=== PATIENT | female | born 1945 | race Caucasian/White ===

== ENCOUNTER 2017-10-24 10:20 | Inpatient (IN) | payer OTHER ==
[~2017-10-24] VITALS: Ht 157.5 cm; Wt 97.5 kg
--- NOTE | ~2017-10-24 | O ---
[facility] [place] [address] OPERATIVE REPORT Name: JAMI MATHUR Room #: 412-P [facility] IN M.R.#: [id number] Admission: 10/24/17 Attend Phys: Brad Brown MD Discharge: 10/27/17 Date of : 49 Report #: [id number] THIS REPORT FOR: //name// CC: Brad Lowe DATE OF SERVICE: 10/25/2017 PREOPERATIVE DIAGNOSIS: Displaced 3-part right distal radius fracture. POSTOPERATIVE DIAGNOSIS: Displaced 3-part right distal radius fracture. PROCEDURE: ORIF right 3-part distal radius fracture. SURGEON: Ney Maynard MD WOOL CARDER: Emily Anderson PA-C. ANESTHESIA: LMA. IMPLANTS: Acumed short narrow 3-hole right distal radius locking plate with a combination of cortical and locking screws. TOURNIQUET TIME: 26 minutes. ESTIMATED BLOOD LOSS: 10 mL. COMPLICATIONS: None. SPECIMENS: None. CONDITION UPON LEAVING THE OPERATING ROOM: Stable. INDICATIONS FOR PROCEDURE: The patient is a 72-year-old female who fell and sustained a right displaced intra-articular 3-part distal radius fracture. She was admitted to the hospital for definitive treatment. After discussion with her, she elected for ORIF of her right distal radius. DESCRIPTION OF PROCEDURE: Risks, benefits, alternatives, complications were discussed in detail with the patient including but not limited to risk of anesthesia, risk of damage to nerves, arteries, blood vessels, risk for infection, bleeding, risk for continued wrist pain, malunion, nonunion and need for reoperation. Informed consent was obtained from the patient. The right wrist was appropriately marked in the preoperative holding area. IV Ancef was given for preoperative antibiotics. She was brought to the operating room and placed in the supine position on operating room table. LMA anesthesia was [address] [address] OPERATIVE REPORT Name: KEVANJAMI Room #: 412-P [facility] IN .R.#: [id number] Admission: 10/24/17 Attend Phys: Brad Brown MD Discharge: 10/27/17 Date of : 49 Report #: [id number] induced without complication. Tourniquet was placed on right upper extremity. Right upper extremity was prepped and draped in normal sterile fashion. Timeout was performed properly identifying the patient and procedure as well as the instrumentation. All in the operating room were in agreement. The right upper extremity was exsanguinated. Tourniquet was inflated. Tourniquet time was 26 minutes. A standard volar approach to the wrist centered over the FCR tendon was made with a 10 blade through the skin. Dissection was taken down sharply to the FCR tendon and the sheath was incised longitudinally. The tendon was retracted radially and the floor of the sheath was incised longitudinally. Blunt dissection was taken down to the pronator and this was taken off the radial aspect of the distal radius. Ball elevator was used to clean off the distal radius and the fracture was then held manually reduced and a provisional radial styloid K-wire was placed for provisional fixation. The fluoroscopic imaging was used to verify adequate reduction of the fracture. A short 3-hole narrow Acumed distal radius locking plate was then positioned under fluoroscopic imaging. One proximal cortical screw was placed to center the plate on the bone. A provisional K-wire was placed distally to bring the plate down to the distal radius and one distal cortical screw was used to bring the plate down to the distal radius. Four additional distal radial locking screws were then placed and the proximal cortical screw was then tightened. Two additional proximal cortical locking screws were placed. After this, the K-wires were removed. Final fluoroscopic imaging was brought in to verify adequate fracture reduction and placement of hardware. The tourniquet was deflated. Hemostasis was obtained with Bovie cautery. Wound was thoroughly irrigated with normal saline. The skin was closed with 2-0 Vicryl, 3-0 nylon. Adaptic, 4 x 4, Webril, and a sugar tong splint were applied. The patient tolerated this procedure well and went to the recovery room under the care of Anesthesia postoperatively. <ELECTRONICALLY SIGNED> By: Ney Maynard MD 11/10/17 1148 1014 1117 Ney Maynard MD /nt
[~2017-10-24 10:20] MED LIST: AMOXICILLIN 50500 MG PO; APAP650 PO; ASPIRIN81 M2 PO; BENADRYL ALLERG25 MG PO; BIOTIN300 MCG PO; BLACK COHOSH200 MG PO; CARDIZEM CD240 MG PO; FISH OIL 1,0001 EAC5 PO; FOSAMAX 70 MG T70 M1 PO; GLUCOSAMIN-CHO1 EACH PO; HYDROCHLOROTHIA25 M1 PO; K-DUR 20 MEQ T20 MEQ PO; KLOR-CON 1010 MEQ PO; LOMOTIL TABLET1 EACH PO; METHOCARBAMOL500 M1 PO; MULTIVITAMINS PO; NEURONTIN 300300 M1 PO; NEURONTIN300 MG PO; OXYCODONE HCL20 M1 PO; PERCOCET 10-321 EACH PO; PHENERGAN 25 MG25 M1 PO; PRESERVISION A1 EAC2 PO; SLEEP AID25 MG PO; TOPROL XL25 MG PO; VITAMIN D31000 UNI2 PO; VITAMIN E400 UNIT PO; ZOFRAN ODT4 MG PO
[2017-10-24 10:21] VITALS: BP 145/49
[2017-10-24 11:05] LABS: ABSOLUTE NEUTROPHILS 5.7 thou/uL (1.4-8.2); BASOPHILS 0.6 % (0.0-2.0); EOSINOPHILS 0.3 % (0.0-3.0); HEMATOCRIT 39.7 % (37.0-47.0); LYMPHOCYTES 18.1 % (24.0-44.0); MCH 31.8 pg (26.0-34.0); MCHC 32.6 g/dL (28.0-37.0); MCV 97.5 fL (80.0-100.0); MONOCYTES 8.6 % (1.0-8.0); PLATELET COUNT 243 thou/uL (150-400); POLYS 72.4 % (36.0-66.0); RBC 4.07 mil/uL (4.20-5.00); RDW 14.6 % (10.5-14.5); WBC 7.9 thou/uL (4.0-11.0)
[2017-10-24 11:13] LABS: CALCIUM 9.6 mg/dL (8.5-10.1); CREATININE 0.8 mg/dL (0.6-1.0); POTASSIUM 3.7 mmol/L (3.5-5.1)
[2017-10-24 11:19] LABS: ALBUMIN 3.3 g/dL (3.4-5.0); TOTAL BILIRUBIN 0.3 mg/dL (<0.1-1.0)
[2017-10-24 11:20] LABS: APTT 25.4 Seconds (24.5-32.8)
[2017-10-24 12:24] VITALS: BP 145/49
[2017-10-24 13:22] VITALS: BP 132/75
[2017-10-24 20:35] VITALS: BP 179/59
[2017-10-25] VITALS (11 sets, daily range): BP systolic 100–179; BP diastolic 52–82
[2017-10-25 05:23] LABS: HEMATOCRIT 39.1 % (37.0-47.0); HEMOGLOBIN 12.8 gm/dL (12.0-15.0); MCH 32.4 pg (26.0-34.0); MCHC 32.7 g/dL (28.0-37.0); MCV 98.9 fL (80.0-100.0); RBC 3.95 mil/uL (4.20-5.00); RDW 14.7 % (10.5-14.5); WBC 8.7 thou/uL (4.0-11.0)
[2017-10-25 05:35] LABS: CALCIUM 9.4 mg/dL (8.5-10.1); CREATININE 0.7 mg/dL (0.6-1.0); POTASSIUM 4.6 mmol/L (3.5-5.1)
[2017-10-25] MEDS ORDERED: TYLENOL325 MG PO (07:49)
[2017-10-25] MEDS ORDERED: ARICEPT 5 MG TAB5 MG PO (07:50)
[2017-10-25] MEDS ORDERED: BIOTIN1000 MCG PO (07:51)
[2017-10-25] MEDS ORDERED: CARDIZEM CD120 MG PO (07:52)
[2017-10-25] MEDS ORDERED: VITAMIN D1000 UNI1 PO (07:52)
[2017-10-25] MEDS ORDERED: DEPAKOTE ER500 MG PO (07:54)
[2017-10-25] MEDS ORDERED: CRANBERRY 6,001 EACH PO (07:54)
[2017-10-25] MEDS ORDERED: DEPAKOTE 250MG250 M1 PO (07:55)
[2017-10-25] MEDS ORDERED: LACTULOSE10 GM/152 PO (07:57)
[2017-10-25] MEDS ORDERED: FISH OIL 1,001000 M2 PO ×2 (07:57→08:04)
[2017-10-25] MEDS ORDERED: NEURONTIN 300M300 M2 PO (07:58)
[2017-10-25] MEDS ORDERED: FLECAINIDE ACET50 M1 PO (07:58)
[2017-10-25] MEDS ORDERED: ATIVAN0.5 MG PO (07:59)
[2017-10-25] MEDS ORDERED: MELATIN3 MG PO (07:59)
[2017-10-25] MEDS ORDERED: GLUCOSAMINE CH1 EA10 PO (07:59)
[2017-10-25] MEDS ORDERED: NAMENDA 10 MG T10 MG PO (08:00)
[2017-10-25] MEDS ORDERED: SENNA8.6 MG PO (08:01)
[2017-10-26] VITALS: BP 141/59
[2017-10-26 04:00] VITALS: BP 126/60
[2017-10-26 06:06] LABS: HEMATOCRIT 34.7 % (37.0-47.0); HEMOGLOBIN 11.4 gm/dL (12.0-15.0)
[2017-10-26 09:56] VITALS: BP 143/47
[2017-10-26 16:00] VITALS: BP 165/54
[2017-10-26 20:00] VITALS: BP 158/60
[2017-10-27 04:00] VITALS: BP 124/54
[2017-10-27 08:57] VITALS: BP 139/42
[2017-10-27] MEDS ORDERED: HYDROCODON-ACE1 EAC7 PO (09:55)
[2018-02-19] MEDS ORDERED: ATIVAN0.5 MG PO (13:53)
[2018-02-19] MEDS ORDERED: ZYRTEC10 M5 PO (13:55)
[2018-02-19] MEDS ORDERED: CIPROFLOXIN HC2.5 M1 OPHTHALMIC (13:57)
[2018-02-19] MEDS ORDERED: CRANBERRY200 MG PO (13:58)
[2018-02-19] MEDS ORDERED: DIVALPROEX SOD125 M1 PO (13:58)
[2018-02-19] MEDS ORDERED: GUAIFENESIN ER600 MG PO (14:02)
[2018-02-19] MEDS ORDERED: PRED FORTE 1% EY5 M1 OPHTHALMIC (14:04)
[2018-02-19] MEDS ORDERED: VOLTAREN GEL 1100 G2 TOP (14:05)
[2018-02-19] MEDS ORDERED: TRAMADOL 50 MG50 MG PO (14:05)
== END 2017-10-27 15:46 | DRG 510 ==
LOC: ER 10:20 → 4N 11:22 → EROBS 11:22 → 4N 13:14
PROVIDERS: Emergency Medicine; Hospitalist; Orthopaedic Surgery
PROC: 2W3EX1Z Immobilization of Right Hand using Splint (ICD-10-PCS; 2017-10-24)
PROC: 0PSH04Z Reposition Right Radius with Internal Fixation Device, Open Approach (ICD-10-PCS; principal; 2017-10-25)
DX: S52.501A Unspecified fracture of the lower end of right radius, initial encounter for closed fracture (principal); E43 Unspecified severe protein-calorie malnutrition; I10 Essential (primary) hypertension; H35.30 Unspecified macular degeneration; F03.90 Unspecified dementia, unspecified severity, without behavioral disturbance, psychotic disturbance, mood disturbance, and anxiety; T50.905A Adverse effect of unspecified drugs, medicaments and biological substances, initial encounter; W18.39XA Other fall on same level, initial encounter; Z90.49 Acquired absence of other specified parts of digestive tract; Z79.899 Other long term (current) drug therapy; Z88.5 Allergy status to narcotic agent; Z87.891 Personal history of nicotine dependence; Z88.2 Allergy status to sulfonamides; Y93.89 Activity, other specified; Y92.89 Other specified places as the place of occurrence of the external cause; Y99.8 Other external cause status; Z68.39 Body mass index [BMI] 39.0-39.9, adult
CPT/HCPCS: 10091; 50101; 50386; 55430; 56527; 56528; 57091; 62110; 62900; 70005

== ENCOUNTER 2018-02-24 05:23 | Day surgery (SDC) | payer OTHER ==
[~2018-02-24] VITALS: Ht 177.8 cm; Wt 56.7 kg
--- NOTE | ~2018-02-24 | EKG ---
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 : 1945 Requested By: Ravinder Barnett Order Number: [id number] MD: Titi Martin Measurements Intervals [place] Rate: 60 P: CO: 223 QRS: -25 QRSD: 100 T: 63 QT: 422 QTc: 422 Interpretive Statements Atrial-paced rhythm Borderline left axis deviation Compared to ECG 05/25/2016 06:17:07 Atrial flutter no longer present atrial pacing is now present Electronically Signed On 02-24-2018 7:59:22 CDT by Titi Martin [email or web address] <ELECTRONICALLY SIGNED> By: Titi Martin MD, [facility] 02/24/18 0759 [phone] Titi Martin MD, [facility] /EPI
--- NOTE | ~2018-02-24 | O ---
[facility] [place] [address] OPERATIVE REPORT Name: KEVANJAMI Room #: 150-2 [facility] M.R.#: [id number] Admission: 02/24/18 Attend Phys: Jacques Richard MD Discharge: Date of : 49 Report #: [id number] THIS REPORT FOR: //name// CC: Pooja Richard DATE OF SERVICE: 02/24/2018 PREOPERATIVE DIAGNOSES: 1. Right hallux valgus. 2. Right second hammer toe deformity. POSTOPERATIVE DIAGNOSES: 1. Right hallux valgus. 2. Right second hammer toe deformity. PROCEDURES: 1. Right foot modified Tate procedure. 2. Right foot first metatarsal osteotomy. 3. Right foot second toe proximal interphalangeal joint arthrodesis. 4. Right foot second toe dorsal capsulotomy and tenotomy. SURGEON: Jacques Richard M.D. HAND SPLITTER: None. ANESTHESIA: General. ESTIMATED BLOOD LOSS: Minimal. DRAINS: No drains. TOURNIQUET TIME: 75 minutes. DESCRIPTION OF PROCEDURE: The patient was brought to the operating room, where she was placed under general anesthesia. Once under adequate general anesthesia, her right lower extremity was prepped and draped in a sterile manner. The extremity was elevated, exsanguinated and tourniquet placed to 300 mmHg. A dorsal incision at the first web space was made. This was dissected down through the soft tissue to the inner sesamoid ligament, which was then incised and the abductor tendon was exposed on the sesamoid. This was released with tenotomy scissors. A [place] blade was then utilized to fenestrate the capsule and release the plantar plate from the base of proximal phalanx of the great toe. Once complete, the wound was irrigated copiously and the Tate procedure was complete. [facility] [address] [email or web address] [address] OPERATIVE REPORT Name: JAMI MATHUR Room #: 150-2 [facility]#: [id number] Admission: 02/24/18 Attend Phys: Jacques Richard MD Discharge: Date of : 49 Report #: [id number] We then proceeded with the second toe to perform a dorsal capsulotomy and tenotomy at the metatarsophalangeal joint, dissecting with tenotomy scissors the extensor tendons and releasing them with the tenotomy scissors. The dorsal capsule was released with a [place] blade. A dorsal incision over the proximal interphalangeal joint was then made and exposure was made of the proximal phalangeal head with a [place] blade, retracting the extensor tendons. A sagittal saw was used to resect the head of the proximal phalanx. The base of the middle phalanx was denuded of cartilage with a rongeur. Subsequent to this, the drill and broaches for the Smart Toe were utilized. Smart Toe implant was attempted to be placed; however, it did not provide adequate fixation. Therefore, a 6.2 K-wire was placed first antegrade and then retrograde out the toe and into the base of the proximal phalanx and across the metatarsophalangeal joint for fixation. Excellent fixation was achieved in this manner. This wound was then irrigated copiously. We then proceeded medially and a medial incision over the proximal phalanx extending down the first metatarsal was then achieved and exposure of the medial capsule was then achieved. This was then incised in line with the incision. Exposure was made of the head of the first metatarsal. The medial eminence was resected with a sagittal saw and utilizing fluoroscopy for guidance, a guidewire was placed for localization of the osteotomy site at the first metatarsal base. This was then achieved with a sagittal saw fixation then at the osteotomy site was then achieved with a Synthes opening wedge plate. A 3-mm wedge was utilized as verified with the calipers. The multiple locking screws were placed into the plate both proximal and distal to the osteotomy site. Excellent fixation was achieved in this manner. The wound was irrigated copiously. The capsular layer was plicated with 2-0 Ethibond suture. Excellent repair was achieved in this manner. Demineralized bone matrix allograft was placed into the osteotomy site. The wound was irrigated once again copiously and all the wounds were closed. The medial wound was closed with 2-0 Vicryl in subcutaneous tissues and 3-0 nylon for the skin. The dorsal wounds were closed with 4-0 Vicryl in subcutaneous tissues and 4-0 nylon for the skin. The wounds were dressed with Xeroform, 4 x 4s and a sterile soft compressive dressing was placed. Tourniquet was let down at 75 minutes. Toes were pink and warm with good capillary refill. There were no complications from the procedure. The patient tolerated the procedure well and went to the recovery room without incident. By: [id number] [id number] Jacques Richard MD /jose angel
[~2018-02-24 05:23] MED LIST changes: +ARICEPT 5 MG TAB5 MG PO; +ATIVAN0.5 MG PO; +BIOTIN1000 MCG PO; +CARDIZEM CD120 MG PO; +CIPROFLOXIN HC2.5 M1 OPHTHALMIC; +CRANBERRY 6,001 EACH PO; +CRANBERRY200 MG PO; +DEPAKOTE 250MG250 M1 PO; +DEPAKOTE ER500 MG PO; +DIVALPROEX SOD125 M1 PO; +FISH OIL 1,001000 M2 PO; +FLECAINIDE ACET50 M1 PO; +GLUCOSAMINE CH1 EA10 PO; +GUAIFENESIN ER600 MG PO; +HYDROCODON-ACE1 EAC7 PO; +LACTULOSE10 GM/152 PO; +MELATIN3 MG PO; +NAMENDA 10 MG T10 MG PO; +NEURONTIN 300M300 M2 PO; +PRED FORTE 1% EY5 M1 OPHTHALMIC; +SENNA8.6 MG PO; +TRAMADOL 50 MG50 MG PO; +TYLENOL325 MG PO; +VITAMIN D1000 UNI1 PO; +VOLTAREN GEL 1100 G2 TOP; +ZYRTEC10 M5 PO
[2018-02-24 07:00] VITALS: BP 140/75
[2018-02-24] MEDS ORDERED: PERCOCET 7.5-31 EACH PO (10:04)
[2018-02-24 10:54] VITALS: BP 140/75
== END 2018-02-24 11:30 ==
LOC: OR 05:23 → TBA 05:23 → OR 11:30
DX: M20.41 Other hammer toe(s) (acquired), right foot (principal); M20.11 Hallux valgus (acquired), right foot; I10 Essential (primary) hypertension; I48.91 Unspecified atrial fibrillation; Z88.2 Allergy status to sulfonamides; Z88.6 Allergy status to analgesic agent; Z98.890 Other specified postprocedural states; Z87.891 Personal history of nicotine dependence; Z98.41 Cataract extraction status, right eye; Z87.440 Personal history of urinary (tract) infections; Z90.49 Acquired absence of other specified parts of digestive tract; Z79.899 Other long term (current) drug therapy; Z79.01 Long term (current) use of anticoagulants
CPT/HCPCS: 50010; 50101; 50386; 50951; 51008; 51412; 53341; 56524; 56526; 56527; 57091; 62110; 62900; 70005

== ENCOUNTER 2018-02-25 04:06 | Emergency (ER) | payer OTHER ==
[~2018-02-25] VITALS: Ht 160 cm; Wt 56.7 kg
[~2018-02-25 04:06] MED LIST changes: +PERCOCET 7.5-31 EACH PO
== END 2018-02-25 07:05 ==
LOC: ER 04:06
DX: G89.18 Other acute postprocedural pain (principal); I10 Essential (primary) hypertension; I48.91 Unspecified atrial fibrillation; Z90.49 Acquired absence of other specified parts of digestive tract; Z98.890 Other specified postprocedural states; Z87.891 Personal history of nicotine dependence; Z88.1 Allergy status to other antibiotic agents; Z88.5 Allergy status to narcotic agent

== ENCOUNTER 2019-02-23 05:28 | Inpatient (IN) | payer OTHER ==
[2019-02-09 11:18] LABS: HEMATOCRIT 43.5 % (37.0-47.0); HEMOGLOBIN 14.6 gm/dL (12.0-15.0); MCH 33.6 pg (26.0-34.0); MCHC 33.6 g/dL (28.0-37.0); RBC 4.35 mil/uL (4.20-5.00); RDW 13.8 % (10.5-14.5); WBC 6.5 thou/uL (4.0-11.0)
[2019-02-09 11:19] LABS: URINE BILIRUBIN NEGATIVE (Negative); URINE BLOOD NEGATIVE (Negative); URINE CLARITY CLEAR; URINE COLOR YELLOW; URINE GLUCOSE-RANDOM* NEGATIVE (Negative); URINE KETONES NEGATIVE (Negative); URINE LEUKOCYTES-REFLEX NEGATIVE (Negative); URINE NITRITE-REFLEX NEGATIVE (Negative); URINE PROTEIN (DIPSTICK) NEGATIVE (Negative); URINE SPECIFIC GRAVITY >= 1.030 (1.005-1.035); URINE UROBILINOGEN 0.2 E.U./dl (0.2-1.0)
[2019-02-09 11:34] LABS: ALBUMIN 3.4 g/dL (3.4-5.0); CALCIUM 9.3 mg/dL (8.5-10.1); POTASSIUM 4.2 mmol/L (3.5-5.1)
[2019-02-09 11:35] LABS: PROTIME 10.2 Seconds (9.3-11.4)
[2019-02-23] VITALS (7 sets, daily range): BP systolic 117–172; BP diastolic 49–100
[~2019-02-23] VITALS: Ht 160 cm; Wt 56.7 kg
[~2019-02-23 05:28] MED LIST changes: +ADVAIR HFA 230M12 GM INH; +AZELASTINE137 MCG/0. NASAL; +BIOFREEZE118 ML TOP; +DEPAKOTE125 MG PO; +FLONASE 0.05%50 MCG NASAL; +GERI-LANTA LIQ355 ML PO; +IPRAT-ALBUT 0.5-3 ML INH; +LORAZEPAM 0.50.5 MG PO; +MUCINEX600 MG PO; +OXYBUTYNIN 5 MG5 M2 PO; +ROBITUSSIN100 MG/53 PO; +TUMS PO; +VISINE TIRED EY15 ML OPHTHALMIC
[2019-02-24 06:13] LABS: HEMATOCRIT 37.2 % (37.0-47.0); HEMOGLOBIN 12.4 gm/dL (12.0-15.0); MCH 33.7 pg (26.0-34.0); MCHC 33.4 g/dL (28.0-37.0); MCV 101.1 fL (80.0-100.0); RBC 3.68 mil/uL (4.20-5.00); RDW 13.5 % (10.5-14.5); WBC 8.9 thou/uL (4.0-11.0)
[2019-02-24 07:45] VITALS: BP 134/47
[2019-02-24 10:50] VITALS: BP 134/47
--- NOTE | 2019-02-24 14:11 | NUR ---
DISCHARGE PLANNING. PATIENT ADMITTED FROM [facility], PLAN IS FOR PATIENT TO RETURN TO [facility] ONCE MEDICALLY READY. CLINICAL INFORMATION FAXED TO [facility] [place]. UNIT SW AWARE. FOLLOWING TO ASSIST WITH DISCHARGE NEEDS.
--- NOTE | 2019-02-24 14:23 | NUR ---
PT ADMITTED RELATED TO RT TOTAL KNEE REPLACEMENT. CM REVIEWED CHART AND SPOKE WITH CARE TEAM. CM MET WITH PT AT BEDSIDE THIS DAY. PT IS A&O X4. CM ROLE INTRODUCED. PT INDICATED THAT SHE LIVES AT [facility] AND THAT SHE HAS LIVED THERE FOR THE LAST 2 YEARS. PT INDICATED SHE HAD USED A WHEELCHAIR TO ASSIST WITH MOBILITY. PT INDICATED SHE PLANS TO RETURN TO [facility] ONCE MEDICALLY STABLE. PT INDICATED HER BOTHER WILL BE ON THE ROAD TO [facility] SO SHE SAID WE COULD CALL THIAGO GUO AT TO LET HIM KNOW WHEN PT DISCHARGES. CM TO FOLLOW INDICATED WITH DC PLANNING.
[2019-02-24 14:44] VITALS: BP 106/36
--- NOTE | 2019-02-24 20:16 | NUR ---
ASSUMED CARE 0700. ALERT X3 WITH FORGETFULNESS. PAIN MANAGED WITH MEDICATIONS. WTE BEARING TOLERATED TO RIGHT KNEE, PICCO DRESSING C/D/I. CALLS FOR ASSISTANCE. FALL PRECAUTIONS IN PLACE.
[2019-02-25 05:19] LABS: HEMATOCRIT 31.2 % (37.0-47.0); MCH 33.9 pg (26.0-34.0); MCHC 33.3 g/dL (28.0-37.0); MCV 101.8 fL (80.0-100.0); RBC 3.07 mil/uL (4.20-5.00); RDW 13.9 % (10.5-14.5); WBC 12.1 thou/uL (4.0-11.0)
[2019-02-25 05:38] LABS: HEMOGLOBIN 10.4 gm/dL (12.0-15.0)
--- NOTE | 2019-02-25 06:47 | NUR ---
progress pt a/o x4 up with sba gb and walker. taking hydrocodone for pain with effect. iv infiltrated so was dc'd pt expects to dc to a facility today so not restarted. voiding qs, incision to left knee c/d/i continue to monitor.
[2019-02-25 07:35] VITALS: BP 129/47
--- NOTE | 2019-02-25 14:24 | NUR ---
Received awake on bed. Due medications given as prescribed- able to swallow tablets w/o difficulty. Pt complained of pain, due PRN pain meds given as prescribed. On room air. With ANTONIO dressing- C/D/I, no signs and symptoms of infection. Pt up with 1, able to use walker with gait belt. Pt seen by PT today. Vital signs stable. Pt seen by Dr Maynard this AM- may go home once CM has coordinated with facility the pt will be going back to- CM informed. Pt assisted in ADLs.
[2019-02-25 14:35] VITALS: BP 103/36
--- NOTE | 2019-02-25 17:00 | NUR ---
DC ORDERS WERE ENTERED. [facility] WAS CONTACTED AND THEY INDICATED THAT IF PT NEEDED REHAB SERVICES THAT THEY COULDN'T TAKE PT [facility] BECAUSE THEY DON'T TAKE HER INSURANCE. THEY INDICATED SHE WOULD NEED TO GO TO AN IN NETWORK FACILITY. CM WENT AND NOTIFIED PT AND SHE WAS VERY UPSET. INDICATED THAT SHE HAD GONE THERE AND PAYED A COPAY FOR THERAPY IN THE PAST. CM SPOKE WITH MELISA AT [facility] AGAIN AND SHE INICATED THAT HAD SPOKEN WITH PT'S BROTHER HARVEY WHO INDICATED THAT HE WASNTED TO TO GO TO [facility] OR [facility]. CM SENT REFERRALS FOR REVIEW. CM TO FOLLOW INDICATED WITH DC PLANNING.
[2019-02-25 19:37] VITALS: BP 132/45
[2019-02-26 04:44] VITALS: BP 126/42
[2019-02-26 05:53] LABS: HEMATOCRIT 27.9 % (37.0-47.0); HEMOGLOBIN 9.5 gm/dL (12.0-15.0); MCH 34.9 pg (26.0-34.0); MCHC 34.1 g/dL (28.0-37.0); MCV 102.6 fL (80.0-100.0); RBC 2.72 mil/uL (4.20-5.00); RDW 13.8 % (10.5-14.5); WBC 8.5 thou/uL (4.0-11.0)
[2019-02-26 08:00] VITALS: BP 147/50
--- NOTE | 2019-02-26 08:16 | NUR ---
progress pt tearful this shift sad she is not going back to worried about dying room mate. right knee hurts more today than yesterday and she is worried she hurt it doing therapy or tolieting ice applied reassured pt that increased pain on day 3 was normal d/t therapies and swelling advised to ice as much as possible and to rest this evening to allow for swelling to dissipate. pt settled down morphine and hydrocodone given for pain pt slept on and off this shift continue poc
[2019-02-26 15:00] VITALS: BP 123/42
--- NOTE | 2019-02-26 19:10 | NUR ---
PT A&OX3, VSS, PAIN IN RIGHT NEW MANAGED WITH NORCO AND MORPHINE.
[2019-02-26 20:00] VITALS: BP 136/50
--- NOTE | 2019-02-27 06:06 | NUR ---
PROGRESS PT CALMER THIS SHIFT NOT SO UPSET ABOUT DELAY IN DISCHARGE. SEEMS TIRED REQUESTED PAIN MEDS AND SLEPT MOST OF SHIFT UP TO [facility] A FEW TIMES WITH WALKER GAIT BELT AND 1 ASSIST. SWELLING TO RIGHT KNEE HAS SLIGHTLY DIMINISHED TO HAVE US TODAY TO R/O DVT. GOOD PEDAL PULSE, SENSATION INTACT, INCISION TO RIGHT KNEE COVERED WITH A ANTONIO DRSG THAT REMAINS C/D/I, VSS TAKING MORPHINE AND HYDROCODONE FOR PAIN STATES PAIN HAS INCREASED IN LAST 2 DAYS AND SHE IS AFRAID SHE HURT IT. BUT SHE DOESN'T RECALL ANY INJURY. USING WALKER AND GB, PLANS TO DC TO REHAB FACILITY.
[2019-02-27 08:39] VITALS: BP 137/49
[2019-02-27 14:25] VITALS: BP 120/41
[2019-02-27 19:19] VITALS: BP 137/50
--- NOTE | 2019-02-27 20:36 | NUR ---
DYSPHORIC MOOD THROUGHOUT MOST OF AM-REPORTING RIGHT KNEE PAIN RATED A 10 NORCO 5/325 GIVEN PO PRM AT 1000 AND REPEATED AT 1500- VERBALIZES POOR RELIEF AND REQUESTIIING MORPHINE MORPHINE SULFATE ADMINSTERD IV PUSH AT APPROX 1715 WITH REPORT PILD PAIN RELEF-{RATING FROPPED FROM 10 TO 9. APPETITE GOOD-USING ROLLER WALKER AND SBA X1 TO USE COMMODE-VOIDING MOD AMOUNT CLEAR YELLOW URIN
[2019-02-28 05:56] LABS: HEMATOCRIT 29.7 % (37.0-47.0); MCH 34.4 pg (26.0-34.0); MCHC 33.5 g/dL (28.0-37.0); MCV 102.4 fL (80.0-100.0); RBC 2.9 mil/uL (4.20-5.00); RDW 13.8 % (10.5-14.5)
--- NOTE | 2019-02-28 07:37 | O ---
[facility] [place] [address] OPERATIVE REPORT Name: KEVANJAMI Room #: 463-P ADM IN M.R.#: [id number] Admission: 02/23/19 ������������������ Attend Phys: Ney Maynard MD Discharge: ������������������ Date of : 49 Report #: [id number] THIS REPORT FOR: //name// CC: Pooja Maynard DATE OF SERVICE: 02/23/2019 PREOPERATIVE DIAGNOSIS: Right knee osteoarthritis. POSTOPERATIVE DIAGNOSIS: Right knee osteoarthritis. PROCEDURE: Right total knee arthroplasty using Navio robotic assistance. SURGEON: Ney Maynard MD CAN SORTER: Joseline Liao PA-C ANESTHESIA: LMA with an adductor canal block. IMPLANTS: Stubbs and Nephew size 4 narrow Legion cobalt chrome posterior stabilized femur, a size 2 tibia, a size 9 highly constrained polyethylene and a size 29 patella. TOURNIQUET TIME: 50 minutes. ESTIMATED BLOOD LOSS: 25 mL. INDICATION FOR ASSISTANCE: Throughout the case, extensive retraction and manipulation of the knee was required. This was afforded to me by my library clerical assistant. CONDITION UPON LEAVING THE OPERATING ROOM: Stable. INDICATIONS FOR PROCEDURE: The patient is a 74-year-old female with right knee osteoarthritis. She had failed conservative measures for this and after discussion with her, she elected for right total knee arthroplasty. DESCRIPTION OF PROCEDURE: Risks, benefits, alternatives, and complications were discussed in detail with the patient including but not limited to risk of anesthesia, risk of damage to nerves, arteries and blood vessels, risk for infection and bleeding, risk for continued knee pain, and need for reoperation. Informed consent was obtained from the patient. Right knee was appropriately marked in the preoperative holding area. IV Ancef was given for preoperative antibiotics. Adductor canal block was placed by Anesthesia. She was brought to the operating room and placed in the supine position on the operating room table. LMA anesthesia was induced without complication. Tourniquet was placed [address] [address] OPERATIVE REPORT Name: JAMI MATHUR Room #: 463-P [facility] IN M.R.#: [id number] Admission: 02/23/19 ������������������ Attend Phys: Ney Maynard MD Discharge: ������������������ Date of : 49 Report #: [id number] on the right thigh. Right lower extremity was prepped and draped in normal sterile fashion. Timeout was performed properly identifying the patient and procedure as well as the instrumentation and implants. All in the operating room were in agreement. Right lower extremity was exsanguinated, tourniquet was inflated. Tourniquet time was 50 minutes. Standard midline approach to the knee was made with a 10 blade through the skin. Dissection was taken down sharply to the fascia and deep flaps were developed medially and laterally. A fresh 10 blade was used to make a medial parapatellar arthrotomy and the knee was inspected. There was severe medial compartment osteoarthritis with mild patellofemoral and lateral compartment osteoarthritis. It was decided to proceed with total knee arthroplasty. ACL and PCL were removed sharply. Reference pins were placed in the femur and the tibia and the knee was digitally mapped using the Ge.tt robotic system. We sized a size 4 femur and a size 2 tibia with an 11 polyethylene spacer. After acceptance of the intraoperative plan, the distal femoral cut was made with a Navio bur. The 4-in-1 cutting block was placed. Anterior, posterior and chamfer cuts were made. Attention was then turned to the tibia. The remainder of the menisci was removed with Bovie cautery. Tibial resection guide was pinned in place using the Ge.tt system for placement of the guide. Tibial resection was made. After this, flexion and extension gaps were checked and found to have good balance in flexion and extension medially; however, laterally, there was some laxity and it was decided not to ana paula this and that we could use a highly constrained polyethylene to make up for this. The tibia was sized, found to be a size 2. A size 2 tibial trial was placed, pinned and punched. A size 4 femoral trial was placed and the box cut was made. This was then trialed with a size 9 highly constrained polyethylene. Knee was taken through range of motion, found to have a millimeter of laxity medially and laterally throughout range of motion both digitally as well as manually. After this, 9 mm was taken off the posterior surface of the patella and a size 29 patellar trial button was placed. Knee was taken through range of motion, found to have good patellar tracking. Trial components were removed. Bony ends were thoroughly irrigated with normal saline. A final size 2 tibia, a size 4 Legion cobalt chrome narrow posterior stabilized femur and a size 29 patella were cemented in place using standard cementation techniques. While the cement cured, a periarticular injection consisting of morphine, ropivacaine, epinephrine and Toradol was placed around the knee joint capsule. After the cement cured, tourniquet was deflated. Hemostasis was obtained with Bovie cautery. A final size 9 highly constrained polyethylene was placed. A gram of vancomycin was placed was closed with 2-0 Vicryl and 3-0 Monocryl. Dermabond and a ANTONIO dressing was applied. The patient tolerated the procedure well and went to the recovery room under care of Anesthesia postoperatively. ��������������������������������������������� <ELECTRONICALLY SIGNED> ���������������������������������������� By: Ney Maynard MD ��������������������������������������������� 02/28/19 0737 1726 1751 Ney Maynard MD /nt
[2019-02-28 08:00] VITALS: BP 132/46
--- NOTE | 2019-02-28 09:08 | NUR ---
PROGRESS PT PROGRESSING WITH PHYSICAL ACTIVITY BUT PAIN CONTROL IS STILL A CHALLENGE SHE IS GOING LONGER PERIODS BETWEEN MEDS BUT STILL RATING IT A 8 TO 10. PEDAL PULSE STRONG GOOD CAP REFILL, SENSATION INTACT AND ABLE TO PEDAL AND DORSIFLEX WITHOUT DIFFICULTY. UP WITH SBA AND WALKER TO [facility]. PT UPSET SHE CANNOT GO BACK TO [facility] HER D[facility] ROOM MATE THERE. I SUGGESTED SHE CALL AND CHECK ON HER AND SHE AGREED IT WOULD BE A GOOD IDEA. PLANS TO TRANSFER TO REHAB SOON INSURANCE IS APPROVED.
--- NOTE | 2019-02-28 11:16 | NUR ---
dp sent facesheet to [facility] and [facility] asking if they take patient's insurance. DP will follow up.
--- NOTE | 2019-02-28 14:39 | NUR ---
DMITRY reviewed chart and spoke with nursing and attending physician. Pt is progressing towards goals for discharge. Referral sent to [facility] on Thursday. DMITRY met with pt and her brother, Gary, at bedside to further discuss discharge plan. Pt states that she has changed her mind and would like referrals to be sent to [facility] and [facility]. vacation planner faxed face sheets to both facilities to ensure they accept pt's insurance. DMITRY received call back from Lisa at [facility], who states they are able to accept pt's insurance. DMITRY spoke with Anne at the [facility], who states they will need to verify pt's insurance. DMITRY spoke with pt's brother, Gary, who states that [facility] would be the first choice due to location. Pt agreeable with either facility. vacation planner to fax referral [facility]. DMITRY is following to assist as needed with discharge planning.
[2019-02-28 15:00] VITALS: BP 121/41
[2019-03-01 05:42] VITALS: BP 138/51
--- NOTE | 2019-03-01 07:28 | NUR ---
Pt. rested quietly at intervals during the night when checked on during frequent rounds. She has been up to the bedside comode with assistance of one. Pt. c/o right knee pain and was given po pain meds (see emar) with some relief noted. Bed alarm is on.
[2019-03-01 08:16] VITALS: BP 140/54
[2019-03-01 14:44] VITALS: BP 120/42
--- NOTE | 2019-03-01 17:20 | NUR ---
[facility] TRI[facility] TO SEE[facility] AUTH FROM PT'S [facility] BUT THEY WERE INFORMED THAT THEY WERE OUT OF NETWORK WITH PT'S PARTICULAR POLICY. SHE INDICATED THAT [facility] [place] ARE IN NETWORK. CM NOTIFIED PT AND HER BROTHER HARVEY AND PT REQUESTED THAT REFERRAL BE SENT TO [facility]. CM FOLLOWING REGARDING DC PLANNING.
--- NOTE | 2019-03-01 20:01 | NUR ---
Received awake on bed. Due medications given as prescribed, able to swallow tablets w/o difficulty. A+O. On room air. With SL at R FA- intact, flushing well. Pt complained of pain, due PRN pain meds given as prescribed. With ANTONIO dressing- C/D/I. Pt able to be up with 1 and use bedside commode. Still a/w CM input re: discharge destination and insurance coverage. Vital signs stable. Pt able to tolerate meals and finish 80-100% of it. Pt had PT session today- tolerated well. Ortho doctor came to see patient today and asked for update re: discharge to SNF, informed her that still a/w insurance approval; asked her how long ANTONIO dressing could be in place, usually 7 days, aware that dressing is C/D/I and will see pt tomorrow. Pt complained that she's having a hard time opening her bowels, due laxatives given, if still unable to open bowels this after may have PRN laxative at [facility]- night staff informed. Pt able to walk around the hallway with PT this afternoon with walker, gait belt and stand by assist.
--- NOTE | 2019-03-02 05:17 | NUR ---
Patient alert and oriented x4. Patient agitated at times. Education provided regarding pain management and pain medication availability. Patient provided PO Hydrocodone. Patient states that medication was not effective at one hour follow up. Patient then requested for IV Morphine. Patient provided IV morphine. Patient reports that pain level decreased and was tolerable but she was still in pain. Patient has been up to [facility] approximately every 45 minutes. Patient tearful and apologetic for needing to use the bathroom so much. Patient is now fixated on the idea that something could be wrong with her due to increased frequency in urination. Patient has been provided 1:1 comfort multiple times through the night to provide education on medication use and stress management. Patient has ANTONIO dressing to right hip. Clean, dry and intact. Patient has saline lock to right forearm. Patient provided Colace this shift but declines to take prescribed Senna. Education provided. Continues to decline. Took HS medications whole without difficulty. Patient has not been able to sleep much this shift but has been resting quietly in bed watching TV.
[2019-03-02 08:18] VITALS: BP 150/34
--- NOTE | 2019-03-02 13:52 | NUR ---
Nutrition: Pt admitted S/P right total knee replacement and seen due to LOS. Eating 75-100% of meals on regular diet. Able to order meals. Stable weights. Awaiting SNF transfer. Low nutrition risk.
[2019-03-02 14:47] VITALS: BP 126/46
--- NOTE | 2019-03-02 16:13 | NUR ---
CM HEARD BACK FORM [facility] AND THEY INDICATED THEIR CONTRACT WITH [facility] ENDED IN JULY 2015. CM NOTIFIED PT AND BROTHER HARVEY. CM INDICATED THAT ORTHO INDICATED THAT PT IS MEDICALLY STABLE TO DISCHARGE AND THAT PT COULD RETURN TO [facility] WITH THERAPIES TO COMPLETE ON HER OWN. PT AND BROTHER WERE NO AGREEABLE WITH THIS OPTION. THEY ASKED THAT REFERRAL BE SENT TO [facility]. REFERRAL SENT TO [facility]. CM ALERTED LIAISON AND ADMISSION COORDINATOR. CM FOLLOWING INDICATED WITH DC PLANNING.
--- NOTE | 2019-03-02 19:51 | NUR ---
ASSUMED CARE OF PATIENT AT 0715, PATIENT ALERT AND ORIENTED X 4. PATOENT UP WITH ASSIST X 1 WITH GAIT BELT AND WALKER. PATIENT HAS RIGHT TOTAL KNEE REPLACEMENT X 1 WEEK. C/O PAIN WITH RIGHT KNEE, RECEIVED HYDROCODONE X 2 TABLETS THIS SHIFT, MORPHINE 2 MG IV GIVEN WITH PARTIAL RELIEF, PATIENT HAS RIGHT FOREARM IV IN PLACE. PATIENT STILL WAITING ON FACILITY PLACEMENT. WILL CONTINUE TO MONITOR.
--- NOTE | 2019-03-03 04:45 | NUR ---
Pt. rested quietly at intervals during the night when checked on during frequent rounds. She has been given pain meds (see emar) for c/o pain to her right knee with some relief noted. Assisted up to the bedside comode with assist of one. Stanislaw dressing dry and intact to right knee. Bed alarm is on.
[2019-03-03 05:06] VITALS: BP 136/49
[2019-03-03 07:42] VITALS: BP 138/52
[2019-03-03 09:48] VITALS: BP 138/52
--- NOTE | 2019-03-03 12:45 | NUR ---
PATIENT IS ALERT AND ORIENTED X 4, [facility] TOOK MEDICATION WHOLE WITHOUT DIFFICULTY. LCTA, RESP EVEN AND UNLABORED, NO SOA NOTED. BS+X4, ABD SOFT NON-TENDER TO TOUCH. PATIENT C/O PAIN, PRN TYLENOL GIVEN, FOR RIGHT KNEE PAIN WITH PARTIAL EFFECT. ANTONIO DRESSING TO RIGHT KNEE IN PLACE, DRY AND INTACT. PATIENT DISCHARGED TODAY TO [facility]. REPORT CALLED TO NURSE (DILLON) PATIENT TO BE PICKED-UP BY 1330 HOURS. AWAITING PICK-UP.
== END 2019-03-03 15:00 | DRG 470 ==
LOC: OR 05:28 → TBA 05:29 → PRE 06:19 → EDSTATUS 09:10 → OR 09:12 → PRE 10:17 → OR 12:14 → PRE 14:11 → 4W 19:00 → OR 19:01 → 4W 19:01
PROVIDERS: Hospitalist; ADMIT Orthopaedic Surgery
PROC: 0SRC0J9 Replacement of Right Knee Joint with Synthetic Substitute, Cemented, Open Approach (ICD-10-PCS; principal; 2019-02-23)
PROC: 8E0Y0CZ Robotic Assisted Procedure of Lower Extremity, Open Approach (ICD-10-PCS; principal; 2019-02-23)
DX: M17.11 Unilateral primary osteoarthritis, right knee (principal); D62 Acute posthemorrhagic anemia; K59.00 Constipation, unspecified; G62.9 Polyneuropathy, unspecified; Z88.6 Allergy status to analgesic agent; Z79.899 Other long term (current) drug therapy
CPT/HCPCS: 10040; 10047; 50010; 50101; 50415; 50954; 51130; 51225; 53000; 53078; 53364; 54118; 56527; 56528; 57095; 57103; 57110; 57127; 57179; 62110; 62900; 64042; 70005

== ENCOUNTER → 2019-03-10 | Outpatient (CLI) | payer OTHER ==
--- NOTE | 2019-03-10 14:54 | 2DMMODE ---
[facility] [address] [place] [address] 2 D/M-MODE ECHOCARDIOGRAM Name: JAMI MATHUR Room #: REG Jamal#: [id number] Admission: 03/10/19 Attend Phys: Fredy Weeks Discharge: Date of : 49 Date of Service: 03/10/19 1454 Report #: [id number] THIS REPORT FOR: //name// APPROVED REPORT Study performed: 03/10/2019 14:11:13 EXAM: Comprehensive 2D, Doppler, and color-flow Echocardiogram Patient Location: Echo lab Status: routine BSA: 1.57 HR: 67 bpm BP: 152/68 mmHg Rhythm: NSR Other Information Study Quality: Adequate Technically limited study due to inability to position patient due to recent knee replacement. Indications Pacemaker Hypertension/HDD 2D Dimensions RVDd: 34.51 mm IVSd: 11.98 (7-11mm) LVOT Diam: 17.67 (18-24mm) LVDd: 39.26 mm PWd: 13.15 (7-11mm) Ascending Ao: 25.30 (22-36mm) LVDs: 28.51 (25-40mm) Aortic Root: 25.22 mm IVC: 7.00 mm Volumes Left Atrial Volume (Systole) Single Plane 4CH: 53.21 mL Single Plane 2CH: 55.90 mL LA ESV Index: 37.00 mL/m2 Aortic Valve AoV Peak Valentino.: 1.78 m/s AO Peak Gr.: 12.64 mmHg LVOT Max P.27 mmHg LVOT Max V: 1.15 m/s BLADIMIR Vmax: 1.58 cm2 [facility] [address] [place] [address] 2 D/M-MODE ECHOCARDIOGRAM Name: JAMI MATHUR Room #: REG Jamal#: [id number] Admission: 03/10/19 Attend Phys: Fredy Weeks Discharge: Date of : 49 Date of Service: 03/10/19 1454 Report #: [id number] Mitral Valve E/A Ratio: 2.1 MV Decel. Time: 150.23 ms MV E Max Valentino.: 1.13 m/s MV A Valentino.: 0.53 m/s MV PHT: 43.57 ms IVRT: 83.04 ms Pulmonary Valve PV Peak Valentino.: 1.18 m/s PV Peak Gr.: 5.52 mmHg Pulmonary Vein P Vein S: 0.68 m/s P Vein A: 0.18 m/s P Vein D: 0.66 m/s P Vein A Dur.: 138.4 msec P Vein S/D Ratio: 1.03 Tricuspid Valve TR Peak Valentino.: 2.84 m/s RAP Estimate: 5.00 mmHg TR Peak Gr.: 32.23 mmHg PA Pressure: 37.00 mmHg Left Ventricle The left ventricle is normal size. Borderline concentric left ventricular hypertrophy. The left ventricular systolic function is normal. The left ventricular ejection fraction is within the normal range. LVEF is 55-60%. Right Ventricle The right ventricle is normal size. The right ventricular systolic function is normal. Atria Left atrium is mildly dilated. The right atrium size is normal. Aortic Valve The aortic valve is normal in structure. No aortic regurgitation is present. There is no aortic valvular stenosis. Mitral Valve The mitral valve is normal in structure. Trace mitral regurgitation. No evidence of mitral valve stenosis. Tricuspid Valve The tricuspid valve is normal in structure. Trace tricuspid regurgitation. PAP is estimated at 37 mmHg. [facility] [address] [place] [address] 2 D/M-MODE ECHOCARDIOGRAM Name: JAMI MATHUR Room #: REG KEVIN Berry#: [id number] Admission: 03/10/19 Attend Phys: Fredy Weeks Discharge: Date of : 49 Date of Service: 03/10/19 1454 Report #: [id number] Pulmonic Valve Pulmonic valve is not well visualized. Trace pulmonic regurgitation. Great Vessels The aortic root is normal in size. IVC is normal in size and collapses >50% with inspiration. Pericardium There is no pericardial effusion. <Conclusion> The left ventricle is normal size. Borderline concentric left ventricular hypertrophy. The left ventricular systolic function is normal. The right ventricle is normal size. Left atrium is mildly dilated. The right atrium size is normal. The aortic valve is normal in structure. Trace mitral regurgitation. Trace tricuspid regurgitation. PAP is estimated at 37 mmHg. <ELECTRONICALLY SIGNED> By: Rajat Ortega MD 03/10/19 1454 1454 1454 Rajat Ortega MD /INF
== END ==
LOC: CV 13:01
DX: I48.91 Unspecified atrial fibrillation (principal); I25.10 Atherosclerotic heart disease of native coronary artery without angina pectoris; E11.9 Type 2 diabetes mellitus without complications; Z95.1 Presence of aortocoronary bypass graft; Z95.0 Presence of cardiac pacemaker